=== PATIENT | male | born 1995 | race Asian ===

== ENCOUNTER → 2016-11-09 | Outpatient (CLI) | payer BC, OTHER ==
[~2016-11-09] MED LIST: OXCA600T2 PO
--- NOTE | 2016-11-09 13:54 | DIAGNOSTIC IMAGING REPORT ---
LEFT HAND 3 VIEWS CLINICAL HISTORY: Healing fracture. FINDINGS: 3 views of left hand are obtained. No prior studies are available for comparison at the time of dictation. The skeletal structures are well mineralized. No acute fracture is seen. There is a healing spiral fracture through the midshaft of the third metacarpal. No additional fracture is identified. The overlying soft tissues are within normal limits. The joint spaces of the hand are well-maintained. IMPRESSION: Healing spiral fracture through the midshaft of the third metacarpal as above. Electronically signed by: James Pereira M.D. 11/09/2016 1:53 PM Dictated Date/Time: 11/09/2016 1:52 PM
== END | disposition home or self-care (01) ==
LOC: C.RDSM 13:28
PROVIDERS: ATTEND Physician Assistant
DX: R52 Pain, unspecified (principal); S62.323D Displaced fracture of shaft of third metacarpal bone, left hand, subsequent encounter for fracture with routine healing; X58.XXXD Exposure to other specified factors, subsequent encounter

== ENCOUNTER → 2016-11-23 | Outpatient (CLI) | payer BC ==
--- NOTE | 2016-11-23 12:38 | DIAGNOSTIC IMAGING REPORT ---
LEFT HAND 3 VIEWS HISTORY: LEFT HAND FX COMPARISON: Left hand 11/09/2016. FINDINGS: Healing midshaft fracture within the left third metacarpal. There is surrounding callus formation. There is progressive dorsal displacement of the distal fragment which demonstrates 2 mm of dorsal distraction. No dislocation. Mild soft tissue swelling along the dorsum of the hand. No radiopaque foreign bodies. IMPRESSION: Healing midshaft fracture within the left third metacarpal which demonstrates slight increased dorsal displacement. Electronically signed by: Abhi Mehta M.D. 11/23/2016 12:36 PM Dictated Date/Time: 11/23/2016 12:35 PM
== END | disposition home or self-care (01) ==
LOC: C.RDSM 11:28
PROVIDERS: ATTEND Physician Assistant
DX: S62.323A Displaced fracture of shaft of third metacarpal bone, left hand, initial encounter for closed fracture (principal); X58.XXXA Exposure to other specified factors, initial encounter